=== PATIENT | female | born 1965 | race Caucasian/White ===

== ENCOUNTER 2021-02-17 14:28 | Inpatient (IN) | payer MEDICAID ==
[~2021-02-17] VITALS: Ht 157.5 cm; Wt 63.0 kg
--- NOTE | 2021-02-17 15:52 | NUR ---
Bebe, daughter and Betty, mother, both okay to update, or [place] . Per Bebe, pt has diagnosis of Bipolar I and psychosis diagnosed in October. Pt with hx of meth use for 10 years, clean for approx 5-6 months. daughter describes baseline as "it's like a rabbit hole, she's walking around the house talking to herself all day." Pt A&Ox4 when asked repeatedly. Per daughter pt with hx of kidney stones eventually leading to her being clean because she had to have stent placement. Pt lives with her mother now. Methocarbomal 750mg BID Hydroxyzine 50mg 1-2 tabs q4-6hr PRN.
--- NOTE | 2021-02-17 16:07 | NUR ---
Pt ambulatory to phone to talk with daughter.
[2021-02-17] MEDS ORDERED: ONDANSETRON 2MG/ML, 2ML IVPush PRN ×2 (17:00→22:00)
[2021-02-17] MEDS: SODIUM CHLORIDE 0.9% 1,000 ML IV SCH ×2 (17:00→23:40)
[2021-02-17] MEDS ORDERED: hydrALAzine 20 MG/ML, 1ML IVPush PRN (17:00)
[2021-02-17] MEDS ORDERED: KETOROLAC 30 MG/1 ML IV PRN (17:00)
[2021-02-17] MEDS ORDERED: HYDROcodone/APAP 5/325 TABLET PO PRN (17:00)
[2021-02-17] MEDS ORDERED: ONDANSETRON ODT 4 MG PO PRN (17:00)
[2021-02-17] MEDS ORDERED: DIPHENHYDRAMINE 25 MG CAPSULE PO PRN (17:00)
--- NOTE | 2021-02-17 18:11 | NUR ---
Late entry summary note: Upon arrival to the ER pt remains in personal clothing, she was cooperative with triage vitals. She was ambulatory to the bathroom independently where she was asked to change into a gown. This RN checked on pt in the bathroom as she was taking a long time, found pt on the floor with the lights off "trying to take a nap" because she "couldn't figure out how to open the door." Pt had put gown on over clothes. This RN told pt she needed to remove her clothes and put the gown on, pt stated she couldn't because she was too cold, pt given multiple blankets. Pt still refused to change out of personal clothes. Pt repeatedly taking off BP and O2 monitors. Pt continually requesting food and drink. Pt refusing all interventions stating she does not want to go to surgery, she does not want to be tortured. Pt is A&Ox4, she talks incecently when awake but her final answers to questions are all correct (where she is, year, president). This RN requested psych eval from MD Jon upon arrival. Pt refused rapid covid swab for surgery. Charge nurse aware.
[2021-02-17 19:01] VITALS: BP 109/65
[2021-02-17] MEDS ORDERED: MIDAZOLAM 1 MG/ML, 2ML ONE (21:03)
[2021-02-17] MEDS ORDERED: FENTANYL PF 250 MCG/5ML ONE (21:03)
[2021-02-17] MEDS ORDERED: PHENYLEPHRINE 10 MG/ML ONE (21:04)
[2021-02-17] MEDS ORDERED: SUCCINYLCHOLINE 20 MG/ML, 10ML ONE (21:04)
[2021-02-17] MEDS ORDERED: PROPOFOL 10 MG/ML, 20ML ONE (21:29)
[2021-02-17] MEDS ORDERED: CEFAZOLIN 1,000 MG ONE ×2 (21:29)
[2021-02-17] MEDS ORDERED: ROCURONIUM 10MG/ML,5ML ONE (21:29)
[2021-02-17] MEDS ORDERED: FENTANYL PF 100 MCG/2ML IV PRN (22:00)
[2021-02-17] MEDS ORDERED: DIAZEPAM 5 MG/ML, 2ML IVPush PRN (22:00)
[2021-02-17] MEDS ORDERED: PROMETHAZINE 12.5 MG SUPP PR PRN (22:00)
[2021-02-17] MEDS ORDERED: ALBUTEROL SULFATE 2.5 MG/3 ML NPPB PRN (22:00)
[2021-02-17] MEDS ORDERED: OXYcodone 5 MG/5 ML ORAL.SOL UDC PO PRN (22:00)
[2021-02-17] MEDS ORDERED: ACETAMINOPHEN 325 MG TABLET PO PRN (22:00)
[2021-02-17] MEDS ORDERED: LORazepam 2 MG/ML, 1ML IVPush PRN (22:00)
[2021-02-17] MEDS ORDERED: MIDAZOLAM 1 MG/ML, 2ML IV PRN (22:00)
[2021-02-17] MEDS ORDERED: hydrALAzine 20 MG/ML, 1ML IV PRN (22:00)
[2021-02-17] MEDS ORDERED: PROMETHAZINE 25 MG/ML, 1ML IVPush PRN (22:00)
[2021-02-17] MEDS ORDERED: MEPERIDINE/PF 25MG/0.5ML IVPush PRN (22:00)
[2021-02-17] MEDS ORDERED: LABETALOL 5MG/ML, 20ML IV PRN (22:00)
[2021-02-17] MEDS ORDERED: DIPHENHYDRAMINE 50 MG/ML, 1ML IVPush PRN ×2 (22:00)
[2021-02-17] MEDS ORDERED: HYDROmorphone 1 MG/ML, 1ML INJ IVPush PRN (22:00)
[2021-02-17] MEDS ORDERED: EPHEDRINE 50 MG/ML, 1ML IVPush PRN (22:00)
[2021-02-18 02:47] LABS: HCG UR SG 1.013 (1.003-1.030)
[2021-02-18 02:48] LABS: MICROSCOPIC INDICATED
[2021-02-18 02:58] LABS: AMPHETAMINE SCREEN, URINE Negative (Negative); BARBITURATE SCREEN, URINE Negative (Negative); BENZODIAZEPINE SCREEN, URINE Positive (Negative); CANNABINOID SCREEN, URINE Negative (Negative); COCAINE SCREEN, URINE Negative (Negative); METHADONE SCREEN, URINE Negative (Negative); OPIATE SCREEN, URINE Negative (Negative)
[2021-02-18 03:21] VITALS: BP 98/59
[2021-02-18 05:39] LABS: BASOPHILS % (AUTO) 0 % (0-1); EOSINOPHILS % (AUTO) 0 % (1-7); LYMPHOCYTES % (AUTO) 8 % (22-44); MEAN CORPUSCULAR HEMOGLOBIN 26.6 pg (27.0-34.8); MEAN CORPUSCULAR HGB CONC 32.8 g/dL (32.4-35.8); MEAN PLATELET VOLUME 7.9 fL (7.4-10.4); MONOCYTES % (AUTO) 2 % (2-9); NEUTROPHILS % (AUTO) 91 % (42-75); PLATELET COUNT 276 x10^3/uL (130-400); RED BLOOD COUNT 4.43 x10^6/uL (3.82-5.3); RED CELL DISTRIBUTION WIDTH 13.8 % (9.6-15.2)
[2021-02-18] MEDS: SODIUM CHLORIDE 0.9% 1,000 ML IV SCH ×3 (05:56→19:40)
[2021-02-18 06:11] LABS: ANION GAP 6 mmol/L (5-15); CALCIUM 8.3 mg/dL (8.5-10.1); CHLORIDE 108 mmol/L (98-107)
[2021-02-18 07:56] VITALS: BP 119/76
[2021-02-18] MEDS ORDERED: OLANZAPINE 5 MG TABLET PO SCH (09:00)
[2021-02-18] MEDS: SENNA/DOCUSATE TABLET PO SCH (09:18)
[2021-02-18] MEDS: CEFTRIAXONE 1,000 MG in DEXTROSE 5% 50 ML IVPB SCH (09:19)
[2021-02-18 12:48] VITALS: BP 121/79
[2021-02-18] MEDS: ACETAMINOPHEN 325 MG TABLET PO PRN (13:37)
[2021-02-18 18:37] VITALS: BP 102/63
[2021-02-19 00:42] VITALS: BP 111/68
[2021-02-19] MEDS: SODIUM CHLORIDE 0.9% 1,000 ML IV SCH (02:20)
[2021-02-19 07:38] VITALS: BP 98/58
[2021-02-19] MEDS ORDERED: PHENAZOPYRIDINE 200 MG TABLET PO PRN (08:30)
[2021-02-19] MEDS: SENNA/DOCUSATE TABLET PO SCH (09:00)
[2021-02-19] MEDS: CEFTRIAXONE 1,000 MG in DEXTROSE 5% 50 ML IVPB SCH (10:17)
[2021-02-19] MEDS: OXYBUTYNIN CHLORIDE 5 MG TABLET PO SCH ×3 (10:17→21:20)
[2021-02-19 13:47] VITALS: BP 120/74
[2021-02-19] MEDS ORDERED: HYDR50TA99 PO (16:35)
[2021-02-19] MEDS ORDERED: METH-640 PO (16:37)
[2021-02-19 19:12] VITALS: BP 110/69
[2021-02-20 02:36] VITALS: BP 132/83
[2021-02-20 07:33] VITALS: BP 117/80
[2021-02-20] MEDS: CEFTRIAXONE 1,000 MG in DEXTROSE 5% 50 ML IVPB SCH (08:51)
[2021-02-20] MEDS: OXYBUTYNIN CHLORIDE 5 MG TABLET PO SCH ×3 (08:51→20:56)
[2021-02-20] MEDS: SENNA/DOCUSATE TABLET PO SCH (08:51)
[2021-02-20] MEDS: ACETAMINOPHEN 325 MG TABLET PO PRN ×2 (09:17→15:01)
[2021-02-20 12:22] VITALS: BP 127/77
[2021-02-20] MEDS ORDERED: FENTANYL PF 250 MCG/5ML ONE (17:29)
[2021-02-20] MEDS ORDERED: MIDAZOLAM 1 MG/ML, 2ML ONE (17:29)
[2021-02-20] MEDS ORDERED: hydrALAzine 20 MG/ML, 1ML IV PRN (17:30)
[2021-02-20] MEDS ORDERED: LABETALOL 5MG/ML, 20ML IV PRN (17:30)
[2021-02-20] MEDS ORDERED: ONDANSETRON 2MG/ML, 2ML IVPush PRN (17:30)
[2021-02-20] MEDS ORDERED: ACETAMINOPHEN 325 MG TABLET PO PRN (17:30)
[2021-02-20] MEDS ORDERED: MEPERIDINE/PF 25MG/0.5ML IVPush PRN (17:30)
[2021-02-20] MEDS ORDERED: OXYcodone 5 MG/5 ML ORAL.SOL UDC PO PRN (17:30)
[2021-02-20] MEDS ORDERED: PROMETHAZINE 25 MG/ML, 1ML IVPush PRN (17:30)
[2021-02-20] MEDS ORDERED: HYDROmorphone 1 MG/ML, 1ML INJ IVPush PRN (17:30)
[2021-02-20] MEDS ORDERED: FENTANYL PF 100 MCG/2ML IV PRN (17:30)
[2021-02-20] MEDS ORDERED: OMNIPAQUE 350 MG/ML, 50 ML BOTTLE ONE (17:46)
[2021-02-20] MEDS ORDERED: DEXAMETHASONE 4 MG/ML, 1ML ONE (17:59)
[2021-02-20] MEDS ORDERED: PROPOFOL 10 MG/ML, 20ML ONE (17:59)
[2021-02-20] MEDS ORDERED: KETOROLAC 30 MG/1 ML ONE (18:03)
[2021-02-20] MEDS ORDERED: ONDANSETRON 2MG/ML, 2ML ONE (18:14)
[2021-02-20 20:00] VITALS: BP 126/84
[2021-02-21 01:08] VITALS: BP 101/74
[2021-02-21 08:00] VITALS: BP 108/74
[2021-02-21] MEDS: OXYBUTYNIN CHLORIDE 5 MG TABLET PO SCH (10:05)
[2021-02-21] MEDS: CEFTRIAXONE 1,000 MG in DEXTROSE 5% 50 ML IVPB SCH (10:05)
[2021-02-21] MEDS ORDERED: CEFD300C37 PO (10:05)
[2021-02-21] MEDS: SENNA/DOCUSATE TABLET PO SCH (10:06)
== END 2021-02-21 13:35 | disposition home or self-care (01) | DRG 710 ==
LOC: ED 16:35 → EDIP 16:36 → SUATTDRO 16:46 → ED 17:23 → 4NE 18:19
PROVIDERS: ADMIT Family Medicine; ATTEND Family Medicine
PROC: 0T768DZ Dilation of Right Ureter with Intraluminal Device, Via Natural or Artificial Opening Endoscopic (ICD-10-PCS; principal; 2021-02-17 19:00)
PROC: 0TC68ZZ Extirpation of Matter from Right Ureter, Via Natural or Artificial Opening Endoscopic (ICD-10-PCS; 2021-02-20)
PROC: 0TP98DZ Removal of Intraluminal Device from Ureter, Via Natural or Artificial Opening Endoscopic (ICD-10-PCS; 2021-02-20)
DX: A41.9 Sepsis, unspecified organism (principal); N13.6 Pyonephrosis; Z20.822 Contact with and (suspected) exposure to COVID-19; F15.959 Other stimulant use, unspecified with stimulant-induced psychotic disorder, unspecified; N20.2 Calculus of kidney with calculus of ureter; R65.20 Severe sepsis without septic shock; Z79.899 Other long term (current) drug therapy; Z85.820 Personal history of malignant melanoma of skin; Z87.442 Personal history of urinary calculi
CPT/HCPCS: 36415; 74018; 76000; 80048; 80307; 81001; 81025; 85025; 87086; 87635; G0378; J0690; J0696; J1100; J1885; J2250; J2405; J2704; J3010; Q9967; C1769; C2617; J0330; J2370; J7030